=== PATIENT | male | born 1965 | race Caucasian/White ===

== ENCOUNTER 2018-05-25 21:09 | Emergency (ER) | END 2018-05-26 01:07 | disposition home or self-care (01) ==

== ENCOUNTER 2019-01-14 14:09 | Emergency (ER) | payer OTHER ==
[~2019-01-14] VITALS: Ht 180.3 cm; Wt 90.0 kg
[~2019-01-14 14:09] MED LIST: AMLO5TAB4 PO; NIFE60TA18 PO
[2019-01-14 14:16] VITALS: BP 108/73; PULSE 88; RESP 18; Ht 180.3 cm; Wt 90.0 kg
[2019-01-14] MEDS ORDERED: METHOCARBAMOL 750 MG TAB PO ONE (15:00)
[2019-01-14] MEDS ORDERED: ACETAMINOPHEN 325 MG TAB PO ONE (15:00)
[2019-01-14] MEDS ORDERED: ACET-141 PO (16:56)
[2019-01-14] MEDS ORDERED: METH750T93 PO (16:56)
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
== END 2019-01-14 17:34 | disposition left against medical advice (07) ==
LOC: FTE 14:09
DX: M54.5 Low back pain (principal); M25.562 Pain in left knee; M54.2 Cervicalgia; I10 Essential (primary) hypertension
CPT/HCPCS: 72100; 73562; Z7610